=== PATIENT | male | born 1950 | race Caucasian/White ===

== ENCOUNTER 2022-11-28 21:14 | Observation (INO) | payer MEDICARE, BC ==
[2022-11-28 23:53] VITALS: BMI 18.6
[2022-11-29] MEDS ORDERED: Nitroglycerin 0.4 MG TAB (25 Tab Bottle) SL PRN (00:43)
[2022-11-29 01:09] LABS: Troponin I Less than 0.010 ng/mL (< 0.028)
[2022-11-29] MEDS ORDERED: Atorvastatin Calcium 20 MG TAB PO SCH ×2 (01:15→21:00)
[2022-11-29] MEDS ORDERED: Apixaban 5 MG TAB PO SCH ×2 (01:15→09:00)
[2022-11-29 04:48] LABS: #Basophils 0.1 10x3/uL (0.0-0.2); #Eosinphils 0.2 10x3/uL (0.0-0.5); #Monocytes 1.1 10x3/uL (0.0-1.1); #Neutrophils 5.9 10x3/uL (1.5-8.4); %Basophils 0.8 % (0.0-2.0); %Eosinophils 2.7 % (0.0-6.0); %Lymphocytes 13.8 % (18.0-47.0); %Monocytes 12.6 % (0.0-10.0); %Neutrophils 69.9 % (40.0-75.0); Hemoglobin 12.9 g/dL (13.5-17.5); Mean Corpuscular HGB CONC 33.9 g/dL (32.0-36.0); Mean Corpuscular Hemoglobin 29.6 pg (27.0-33.0); Mean Corpuscular Volume 87.2 fl (81.2-95.1); Mean Platelet Volume 9.1 fl (7.4-10.4); Platelet Count 238 10x3/uL (150-450); RBC Distribution Width 12.2 % (11.5-14.5); Red Blood Cell (RBC) Count 4.36 10x6/uL (4.32-5.72); White Blood Cell (WBC) Count 8.5 10x3/uL (3.5-10.5)
[2022-11-29 05:05] LABS: Anion Gap 14 mmol/L (10-20); BUN (Urea Nitrogen) 17 mg/dL (8.4-25.7); Calc. Creatinine Clearance 60 mL/min (70-130); Calcium 8.8 mg/dL (7.8-10.44); Carbon Dioxide 25 mmol/L (23-31); Cardiac Risk 2.3 (Less than 4.5); Chloride 96 mmol/L (98-107); Cholesterol 108 mg/dl (< 200 Desired); Estimated GFR 87; Glucose 86 mg/dL (83-110); HDL Cholesterol 48 mg/dL (>60 Neg Risk); LDL Cholesterol, Calculated 52 mg/dL; Potassium 4.3 mmol/L (3.5-5.1); Sodium 131 mmol/L (136-145); Triglycerides 41 mg/dL (Less than 150)
[2022-11-29 05:13] LABS: Troponin I Less than 0.010 ng/mL (< 0.028)
[2022-11-29] MEDS: Losartan Potassium 50 MG TAB PO SCH (08:13)
[2022-11-29] MEDS: Aspirin 81 mg Enteric Coated Tablet PO SCH (08:13)
[2022-11-29] MEDS: Amiodarone 200 MG TAB PO SCH (08:13)
[2022-11-29] MEDS ORDERED: hydrALAZINE 20 MG/ML VIAL SLOW IVP PRN (09:44)
[2022-11-29] MEDS ORDERED: Communication Order-Pharmacy FS SCH (09:45)
[2022-11-29] MEDS ORDERED: Amlodipine 5 MG TAB PO SCH (13:15)
[2022-11-29] MEDS ORDERED: Famotidine 20 MG TAB PO SCH (17:00)
[2022-11-29] MEDS: Carvedilol 6.25 MG TAB PO SCH (17:39)
[2022-11-30 05:05] LABS: #Eosinphils 0.3 10x3/uL (0.0-0.5); #Monocytes 0.9 10x3/uL (0.0-1.1); #Neutrophils 5.2 10x3/uL (1.5-8.4); %Basophils 0.5 % (0.0-2.0); %Eosinophils 4.1 % (0.0-6.0); %Lymphocytes 16.1 % (18.0-47.0); %Monocytes 11.4 % (0.0-10.0); %Neutrophils 67.6 % (40.0-75.0); Hematocrit 37.5 % (38.8-50.0); Hemoglobin 12.8 g/dL (13.5-17.5); Mean Corpuscular HGB CONC 34.1 g/dL (32.0-36.0); Mean Corpuscular Hemoglobin 29.8 pg (27.0-33.0); Mean Corpuscular Volume 87.4 fl (81.2-95.1); Mean Platelet Volume 8.9 fl (7.4-10.4); Platelet Count 222 10x3/uL (150-450); RBC Distribution Width 12.5 % (11.5-14.5); Red Blood Cell (RBC) Count 4.29 10x6/uL (4.32-5.72); White Blood Cell (WBC) Count 7.6 10x3/uL (3.5-10.5)
[2022-11-30 05:08] LABS: INR-International Normal Ratio 1.1; PTT 28.5 sec (22.0-33.0); Prothrombin Time 11.4 sec (9.5-12.1)
[2022-11-30 05:27] LABS: ALT (SGPT) 52 U/L (8-55); AST (SGOT) 34 U/L (5-34); Albumin 3.6 g/dL (3.4-4.8); Alkaline Phosphatase 74 U/L (40-110); Anion Gap 14 mmol/L (10-20); BUN (Urea Nitrogen) 24 mg/dL (8.4-25.7); Bilirubin, Total 0.5 mg/dL (0.2-1.2); Calc. Creatinine Clearance 49 mL/min (70-130); Calcium 8.7 mg/dL (7.8-10.44); Carbon Dioxide 26 mmol/L (23-31); Chloride 96 mmol/L (98-107); Estimated GFR 68; Globulin 2.2 g/dL (2.4-3.5); Glucose 94 mg/dL (83-110); Potassium 4.6 mmol/L (3.5-5.1); Protein, Total 5.8 g/dL (5.8-8.1); Sodium 131 mmol/L (136-145); Troponin I Less than 0.010 ng/mL (< 0.028)
[2022-11-30] MEDS: Carvedilol 6.25 MG TAB PO SCH ×2 (05:58→17:33)
[2022-11-30] MEDS: Amiodarone 200 MG TAB PO SCH (05:58)
[2022-11-30] MEDS: Aspirin 81 mg Enteric Coated Tablet PO SCH (05:59)
[2022-11-30] MEDS ORDERED: Lidocaine 1% (PF) 30 ML VIAL ONE (06:27)
[2022-11-30] MEDS ORDERED: Verapamil 5 MG/2 ML VIAL ONE (06:28)
[2022-11-30] MEDS ORDERED: Nitroglycerin 50 MG/250 ML BOT 250 ML ONE (06:28)
[2022-11-30] MEDS ORDERED: Heparin 10,000 UNITS/ 10 ML VIAL ONE (06:28)
[2022-11-30] MEDS ORDERED: Adenosine 6 MG/2 ML VIAL ONE (06:42)
[2022-11-30] MEDS ORDERED: Atropine Sulfate 0.4 mg/1 ml Vial ONE (06:42)
[2022-11-30] MEDS ORDERED: fentaNYL 50 mcg/mL 1 mL Vial ONE (07:28)
[2022-11-30] MEDS ORDERED: Midazolam HCl 2 mg/2 ml Vial ONE (07:29)
[2022-11-30] MEDS ORDERED: Sodium Chloride 0.9% 200 ML IV PRN (08:07)
[2022-11-30] MEDS ORDERED: Nitroglycerin 0.4 MG TAB (25 Tab Bottle) SL PRN (08:07)
[2022-11-30] MEDS ORDERED: Acetaminophen/Codeine 30-300mg Tablet PO PRN ×2 (08:07)
[2022-11-30] MEDS ORDERED: Amlodipine 5 MG TAB PO SCH (09:00)
[2022-11-30] MEDS: Losartan Potassium 50 MG TAB PO SCH (10:00)
[2022-11-30] MEDS ORDERED: Iopamidol 300 61% 100 ML VIAL FS ONE (15:01)
[2022-11-30 16:20] VITALS: TEMP 98.9
[2022-11-30 17:34] VITALS: BP 144/70
[2022-11-30] MEDS ORDERED: Apixaban 5 MG TAB PO SCH (21:00)
== END 2022-11-30 17:55 | disposition home or self-care (01) ==
LOC: CSHTELE 23:02
PROVIDERS: ADMIT Family Medicine; ATTEND Family Medicine
PROC: 4A023N7 Measurement of Cardiac Sampling and Pressure, Left Heart, Percutaneous Approach (ICD-10-PCS; principal; 2022-11-28)
PROC: B205YZZ Plain Radiography of Left Heart using Other Contrast (ICD-10-PCS; 2022-11-28)
DX: R07.89 Other chest pain (principal); I10 Essential (primary) hypertension; E78.5 Hyperlipidemia, unspecified; I48.0 Paroxysmal atrial fibrillation; I65.29 Occlusion and stenosis of unspecified carotid artery; K21.9 Gastro-esophageal reflux disease without esophagitis; M48.00 Spinal stenosis, site unspecified; F32.A Depression, unspecified; R09.89 Other specified symptoms and signs involving the circulatory and respiratory systems; Z88.8 Allergy status to other drugs, medicaments and biological substances; Z88.2 Allergy status to sulfonamides; Z79.01 Long term (current) use of anticoagulants; Z79.82 Long term (current) use of aspirin; Z79.899 Other long term (current) drug therapy
CPT/HCPCS: 80048; 80053; 80061; 83735; 84484 ×3; 85025 ×2; 85610; 85730; 93005; 93306; 93458; C1769; C1894; G0378 ×2; J3010; 36415; 93010; 99152; 99153; J0153; J0461; J1644; J2001; J2250; Q9967

== ENCOUNTER 2022-12-01 06:32 | Emergency (ER) | payer MEDICARE, BC ==
[2022-12-01 07:16] LABS: #Basophils 0.1 10x3/uL (0.0-0.2); #Eosinphils 0.4 10x3/uL (0.0-0.5); #Monocytes 0.7 10x3/uL (0.0-1.1); #Neutrophils 4.3 10x3/uL (1.5-8.4); %Basophils 0.8 % (0.0-2.0); %Eosinophils 5.9 % (0.0-6.0); %Lymphocytes 15.6 % (18.0-47.0); %Monocytes 10.3 % (0.0-10.0); %Neutrophils 67.1 % (40.0-75.0); Hematocrit 42.6 % (38.8-50.0); Hemoglobin 14.7 g/dL (13.5-17.5); Mean Corpuscular HGB CONC 34.5 g/dL (32.0-36.0); Mean Corpuscular Hemoglobin 30.1 pg (27.0-33.0); Mean Corpuscular Volume 87.3 fl (81.2-95.1); Platelet Count 265 10x3/uL (150-450); RBC Distribution Width 12.4 % (11.5-14.5); Red Blood Cell (RBC) Count 4.88 10x6/uL (4.32-5.72); White Blood Cell (WBC) Count 6.4 10x3/uL (3.5-10.5)
[2022-12-01 07:35] LABS: ALT (SGPT) 75 U/L (8-55); AST (SGOT) 52 U/L (5-34); Albumin 4.3 g/dL (3.4-4.8); Alkaline Phosphatase 87 U/L (40-110); Anion Gap 16 mmol/L (10-20); BUN (Urea Nitrogen) 19 mg/dL (8.4-25.7); Bilirubin, Total 0.7 mg/dL (0.2-1.2); Calc. Creatinine Clearance 0 mL/min (70-130); Calcium 9.1 mg/dL (7.8-10.44); Carbon Dioxide 22 mmol/L (23-31); Chloride 97 mmol/L (98-107); Estimated GFR 67; Globulin 2.7 g/dL (2.4-3.5); Glucose 105 mg/dL (83-110); Potassium 4.1 mmol/L (3.5-5.1); Sodium 131 mmol/L (136-145); Troponin I Less than 0.010 ng/mL (< 0.028)
[2022-12-01] MEDS ORDERED: Methocarbamol 500 MG TAB PO SCH (08:15)
[2022-12-01] MEDS ORDERED: Mag-Al Plus 1200 MG/1200 MG/120 MG/30 ML UDCUP ONE (08:15)
== END 2022-12-01 09:09 | disposition home or self-care (01) ==
LOC: CSHERS 06:32
DX: R07.9 Chest pain, unspecified (principal); M54.2 Cervicalgia; K21.9 Gastro-esophageal reflux disease without esophagitis; I10 Essential (primary) hypertension; Z79.01 Long term (current) use of anticoagulants; Z79.82 Long term (current) use of aspirin
CPT/HCPCS: 71045; 80053; 83880; 84484; 85025; 93005